=== PATIENT | female | born 1990 | race African-American/Black ===

== ENCOUNTER 2022-03-19 06:23 | Emergency (ER) | payer MEDICAID ==
[~2022-03-19] VITALS: Ht 162.6 cm; Wt 89.2 kg
[2022-03-19 07:43] VITALS: BP 128/82
== END 2022-03-19 08:33 | disposition home or self-care (01) ==
LOC: ER 06:23
DX: T16.2XXA Foreign body in left ear, initial encounter (principal); X58.XXXA Exposure to other specified factors, initial encounter; Y93.89 Activity, other specified; Y92.89 Other specified places as the place of occurrence of the external cause; Y99.8 Other external cause status
CPT/HCPCS: 69200